=== PATIENT | female | born 1955 | race Caucasian/White ===

== ENCOUNTER 2017-03-26 02:25 | Inpatient (IN) | payer OTHER ==
[~2017-03-26] VITALS: Ht 172.7 cm; Wt 104.8 kg
[~2017-03-26 02:25] MED LIST: ACET-2869 PO; ALBU0.0912 IH; CARI350T34; GABA300C PO; METO25TA PO; OMEP-124 PO; ORE25 PO; TOLT2TAB7 PO; VAS2.5 PO; [UNRECOGNIZED DRUG - CODE]
--- NOTE | 2017-03-26 02:25 | NUR ---
PT SAEID ORTA. TAKEN TO BED 12
[2017-03-26 02:30] VITALS: BP 90/62
--- NOTE | 2017-03-26 02:30 | NUR ---
61 Y/O F BIBA W/C/O LACERATION TO R ELBOW S/P FALLING X 30 MINUTES AGO. PT DENIES ANY LOC. PT ALERT AND ORIENTED X 4, MED HX HTN, PREDIABETICS. VSS, BP SLIGHLTY LOW, ER MADE AWARE.
[2017-03-26 03:28] LABS: HEMATOCRIT 37.8 % (36-48); HEMOGLOBIN 12.4 g/dL (12.0-16.0); MEAN CORPUSCULAR HEMOGLOBIN 29 pg (27-31); MEAN CORPUSCULAR HGB CONC 33 g/dL (33-37); MEAN CORPUSCULAR VOLUME 89 fL (80-94); PLATELET COUNT (AUTO) 225 K/uL (140-450); RED BLOOD CELL COUNT(AUTO) 4.26 MIL/uL (4.20-5.40); RED CELL DISTRIBUTION WIDTH 12.4 % (11.6-13.7); WHITE BLOOD COUNT (AUTO) 6.8 K/uL (4.8-10.8)
[2017-03-26] MEDS ORDERED: NACL 0.9% 1,000 ML IV ONE ×3 (03:30→04:10)
[2017-03-26 03:46] LABS: EOSINOPHILS % (MANUAL) 3 % (0-4); LYMPHOCYTES % (MANUAL) 48 % (20-46); MONOCYTES % (MANUAL) 4 % (5-12)
[2017-03-26 03:47] LABS: ALBUMIN 3.3 g/dL (3.4-5.0); CARBON DIOXIDE 25.6 mmol/L (21-32); CREATININE 1.4 mg/dL (0.6-1.3); POTASSIUM 3.6 mmol/L (3.5-5.1); TOTAL BILIRUBIN 0.4 mg/dL (0.0-1.0)
[2017-03-26 03:50] LABS: PROTHROMBIN TIME 10.4 secs (10.8-13.4)
--- NOTE | 2017-03-26 04:00 | NUR ---
Dr. Boogie evaluating patient at bedside.
[2017-03-26] MEDS ORDERED: MORPHINE SULFATE 4 MG/ML SYR IVP ONE (04:35)
--- NOTE | 2017-03-26 04:45 | NUR ---
PT TAKEN FOR CT SCAN VIA [facility].
[2017-03-26 05:07] LABS: APPEARANCE,URINE CLEAR (CLEAR); BILIRUBIN,URINE NEGATIVE (NEGATIVE); BLOOD, URINE NEGATIVE (NEGATIVE); COLOR,URINE YELLOW (YELLOW); LEUKOCYTE ESTERASE ,URINE NEGATIVE (NEGATIVE); NITRITE, URINE NEGATIVE (NEGATIVE); PH,URINE 5.5 (5.0-9.0); UGLUCOSE NEGATIVE (NEGATIVE)
--- NOTE | 2017-03-26 05:12 | NUR ---
PT RESTING IN BED, AWATING FOR LAB RESULTS.
[2017-03-26] MEDS ORDERED: HYDROmorphone 1 MG/ML AMP IVP ONE (05:20)
[2017-03-26] MEDS ORDERED: LIDOCAINE 1% ***ER ONLY *** 10 MG/ML VIAL INJ ONE (05:20)
--- NOTE | 2017-03-26 05:20 | NUR ---
Cristy melgar in EDM - 03/26/17 at 0559 by NORM PT PERFORMING TX TO R LAC. PT TOLERATING WELL.
--- NOTE | 2017-03-26 05:20 | NUR ---
LEROY DANIELS PERFORMING TX TO PT'S R LAC. PT TOLERATING WELL.
[2017-03-26] MEDS ORDERED: cefTRIAXone 1,000 MG VIAL ONE (05:29)
[2017-03-26] MEDS ORDERED: ALBUTEROL 0.083% 2.5 MG/3 ML NEBU INH PRN (06:15)
[2017-03-26] MEDS ORDERED: ONDANSETRON 4 MG/2 ML VIAL IVP PRN (06:15)
[2017-03-26] MEDS ORDERED: ACETAMINOPHEN 325 MG TAB PO PRN (06:15)
--- NOTE | 2017-03-26 06:36 | NUR ---
Patient will be admitted to care of DR TRAN. Admited to MED SURG. Will go to room 105 A. Belongings list completed. Report to SHERIF CORTEZ.
--- NOTE | 2017-03-26 06:45 | NUR ---
PT TRANSFERED TO FLOOR VIA WHEELCHAIR BY EMT.
[2017-03-26 07:00] VITALS: BP 114/73
--- NOTE | 2017-03-26 07:10 | NUR ---
RECEIVED PATIENT IN BED. PATIENT AWAKE, ALERT AND ORIENTED. NO S/S OF DISTRESS NOTED. PATIENT ON 2L O2. NO SOB. DRESSING NOTED TO THE RIGHT ELBOW. DRESSING CLEAN, DRY AND INTACT. IV LINE NOTED TO THE LEFT AC SALINE LOCKED. NO C/O PAIN AT THIS TIME. FALL PRECAUTIONS IN PLACE. BED LOWERED WITH CALL LIGHT WITHIN REACH. WILL CONTINUE TO MONITOR
[2017-03-26] MEDS ORDERED: LIDOCAINE/PRILOCAINE 2.5% 30 GM TUBE TP ONE (07:11)
--- NOTE | 2017-03-26 08:59 | NUR ---
PATIENT HAS BEEN SCREENED AND CATEGORIZED MODERATE NUTRITION RISK. PATIENT WILL BE SEEN WITHIN 3-5 DAYS OF ADMISSION. 03/29/17 - 03/31/17 COLE [address] [place] MBA, RD
[2017-03-26] MEDS: MORPHINE SULFATE 4 MG/ML SYR IVP PRN ×3 (11:02→21:32)
--- NOTE | 2017-03-26 11:40 | NUR ---
PATIENT SEEN BY PHYSICAL THERAPIST
[2017-03-26 12:00] VITALS: BP 128/69
[2017-03-26] MEDS: NACL 0.9% 1,000 ML IV SCH ×2 (12:15→16:11)
[2017-03-26] MEDS ORDERED: ALBUTEROL HFA MDI 90 MCG/ACTUATION 8 GM INH PRN (12:40)
--- NOTE | 2017-03-26 12:40 | NUR ---
WOUND NOTED TO THE PATIENT'S RIGHT SECOND TOE. DR RUEDA AWARE
--- NOTE | 2017-03-26 12:45 | NUR ---
ASSISTED PATIENT TO THE BATHROOM USING A WALKER. PATIENT VOIDED. NO S/S OF DISTRESS NOTED
--- NOTE | 2017-03-26 13:00 | NUR ---
PATIENT SEEN BY DR RUEDA
[2017-03-26] MEDS: metroNIDAZOLE 500 MG/NS PREMIX 100 ML IV SCH ×2 (14:10→21:27)
[2017-03-26] MEDS ORDERED: INFLUENZA VIRUS VACCINE QUAD 0.5 ML SYR IMVAC PRN (15:05)
[2017-03-26] MEDS ORDERED: PNEUMOCOCCAL VACCINE 23 MCG/0.5 ML VIAL IMVAC SCH (15:05)
--- NOTE | 2017-03-26 15:22 | NUR ---
Social Service Note: Per patient and patient's daughter Irina , they do not want patient to be transfer to snf for physical therapy, they prefer home health services. I verified patient's address listed on face sheet with Irina. Ambulatory Care Coordinator Shandra made aware of above information.
[2017-03-26 16:00] VITALS: BP 152/82
--- NOTE | 2017-03-26 18:06 | NUR ---
Social Service Note: I faxed inquiry to [facility], phone number , fax . Per Sade from [facility], patient has been accepted, she will contact assistant case manager Sugar from [facility] for authorization. She stated they will send a nurse to patient's home on Wednesday03/28/17, charge nurse Misael made aware.
[2017-03-26] MEDS: MORPHINE SULFATE 2 MG/ML SYR IVP PRN (18:16)
--- NOTE | 2017-03-26 19:28 | NUR ---
PATIENT REPORT GIVEN AT BEDSIDE. PATIENT ENDORSED IN STABLE CONDITION
--- NOTE | 2017-03-26 19:29 | NUR ---
PATIENT IS CURRENTLY AWAKE ALERT ORIENTED RESTING IN BED,IVF INFUSING WELL IV SITE PATENT NO INFILTRATION NOTED TO IV SITE. PATIENT HAS NO COMPLAINS OF PAIN AT THIS TIME. DRESSING CURRENTLY IN PLACE TO RT FOREARM REMAINS DRY AND INTACT SHE HAS SOME PURPLISH DISCOLORATION NOTED UNDER THE CHIN.PATIENT HAS A BEDSIDE COMMODE AT BEDSIDE PATIENT ENCOURAGED TO CALL FOR ASSISTANCE PATIENT VERBALIZES UNDERSTANDING.CALL LIGHT WITHIN REACH WILL CONTINUE TO MONITOR.
--- NOTE | 2017-03-26 20:00 | NUR ---
Patient's Plan of Care was discussed and reviewed with AMUSEMENT PARK ENTERTAINER: SINDI GOMES
--- NOTE | 2017-03-26 20:30 | NUR ---
PATIENT ASSISTED TO THE BEDSIDE COMMODE BY KRISSY PEREIRA AND KRISSY BRANCH.CALL LIGHT WITHIN REACH AND FALL PRECAUTIONS IMPLEMENTED AT ALL TIMES.
--- NOTE | 2017-03-26 21:20 | NUR ---
MD TRAN CALLED BACK AND I INFORMED HIM THAT PATIENT BLOOD PRESSURE WAS HIGH EARLIER 161/96 AND I RECHECKED IT AGAIN AND IT IS STILL 158/85 HR 85 I INFORMED MD THAT PATIENT DOESN'T HAVE ANY B/P MEDS CURRENTLY ORDERED ,BUT SHE IS TAKING B/P HOME MEDS. I READ THE LIST OF HOME MEDS TO MD TRAN AND ALSO B/P MEDS SHE IS TAKING AT HOME AND I ALSO TOLD MD THAT PATIENT HAD TOLD ME THAT THE MAGISTERIAL DISTRICT JUDGE SPOKE TO HER AND TOLD HER THAT HE WAS THINKING OF NOT CONTINUING HER BLOOD PRESSURE MEDS BECAUSE OF THE DIURETIC IN ONE OF HER B/P MEDS HE WAS CONCERNED SHE MIGHT BE LOSING TOO MUCH WATER.SO I READ TO MD TRAN THE PATIENT'S CURRENT BUN AND CREATININE AND THEN HE GAVE NEW ORDERS AND SAID TO GIVE LOPRESSOR 25MG PO TIMES ONE ONCE TONIGHT AND THEN DAILY AND ALSO NORVASC 5MG PO TIMES ONE ONCE TONIGHT AND THEN DAILY. WILL CARRY MD ORDERS OUT AND I WILL CONTINUE TO OBSERVE THE PATIENT.
[2017-03-26] MEDS ORDERED: amLODIPine 5 MG TAB PO SCH (21:25)
[2017-03-26] MEDS ORDERED: METOPROLOL 25 MG TAB PO SCH (21:25)
[2017-03-26 21:35] VITALS: BP 158/85
--- NOTE | 2017-03-26 21:48 | NUR ---
BLOOD PRESSURE MEDS ADMINISTERED ORDERED FOR HIGH BLOOD PRESSURE BY MD TRAN WILL CONTINUE TO MONITOR.CALL LIGHT WITHIN REACH.
--- NOTE | 2017-03-26 22:33 | NUR ---
PATIENT RESTING COMFORTABLY IN BED NEEDS MET.PATIENT STATES,"I FEEL VERY COMFORTABLE."
[2017-03-27 00:15] VITALS: BP 157/91
--- NOTE | 2017-03-27 00:20 | NUR ---
PATIENT IS CURRENTLY AWAKE SITTING UP IN BED TRYING TO MAKE HERSELF COMFORTABLE IN BED,IVF INFUSING WELL IV SITE PATENT WILL CONTINUE TO MONITOR.CALL LIGHT WITHIN REACH.
[2017-03-27] MEDS: NACL 0.9% 1,000 ML IV SCH ×2 (02:11→03:39)
--- NOTE | 2017-03-27 03:00 | NUR ---
PATIENT SLEEPING COMFORTABLY IN BED WILL CONTINUE TO MONITOR.CALL LIGHT WITHIN REACH.
[2017-03-27] MEDS: MORPHINE SULFATE 2 MG/ML SYR IVP PRN (03:08)
--- NOTE | 2017-03-27 04:59 | NUR ---
PATIENT ASSISTED TO THE BEDSIDE COMMODE AND BACK TO BED PATIENT TOLERATED ACTIVITY WELL. SCD'S CONTINUE TO BE IN ON AND IN PLACE TO BOTH LOWER EXTREMITIES.CALL LIGHT WITHIN REACH WILL CONTINUE TO MONITOR.
[2017-03-27] MEDS: metroNIDAZOLE 500 MG/NS PREMIX 100 ML IV SCH ×3 (05:01→21:17)
--- NOTE | 2017-03-27 07:23 | NUR ---
[facility] REFERRAL RECEIVED ON 03/27/17. PATIENT HAS BEEN RE-SCREENED AND CATEGORIZED HIGH NUTRITION RISK. PATIENT WILL BE SEEN WITHIN 1-2 DAYS OF ADMISSION. 03/27/17 - 03/28/17 COLE [address] [facility]O MBA, RD
--- NOTE | 2017-03-27 07:41 | NUR ---
PATIENT STABLE REPORT ENDORSED TO SHERIF HAYNES PATIENT IS STABLE SHE WILL RESUME CARE OF THE PATIENT.
--- NOTE | 2017-03-27 07:45 | NUR ---
REPORT RECEIVED FROM [facility] NURSE, PT IN BED AWAKE ALERT AND ORIENTED X4. PT IS ABLE TO FOLLOW COMMAND AND MAKE NEEDS KNOWN WELL VERBALLY. PT DENIES ANY PAIN AT THIS TIME. DRESSING TO THE RIGHT ARM INTACT. CALL LIGHT WITHIN REACH. PT IS AWARE TO CALL FOR HELP AT ALL TIMES. V/S STABLE.
[2017-03-27 08:13] LABS: BASOPHILS # (AUTO) 0.2 K/uL (0.00-0.22); BASOPHILS % (AUTO) 3.5 % (0.0-2.0); EOSINOPHILS # (AUTO) 0.1 K/uL (0-0.4); EOSINOPHILS % (AUTO) 1.7 % (0.0-4.0); HEMATOCRIT 37.5 % (36-48); HEMOGLOBIN 12.7 g/dL (12.0-16.0); LYMPHOCYTES # (AUTO) 1.7 K/uL (2.5-16.5); LYMPHOCYTES % (AUTO) 24.6 % (20.5-51.1); MEAN CORPUSCULAR HEMOGLOBIN 30 pg (27-31); MEAN CORPUSCULAR HGB CONC 34 g/dL (33-37); MEAN CORPUSCULAR VOLUME 88 fL (80-94); MONOCYTES # (AUTO) 0.7 K/uL (0.8-1.0); MONOCYTES % (AUTO) 10.2 % (1.7-9.3); NEUTROPHILS # (AUTO) 4.1 K/uL (1.8-7.7); PLATELET COUNT (AUTO) 145 K/uL (140-450); RED BLOOD CELL COUNT(AUTO) 4.24 MIL/uL (4.20-5.40); RED CELL DISTRIBUTION WIDTH 12.1 % (11.6-13.7); WHITE BLOOD COUNT (AUTO) 6.8 K/uL (4.8-10.8)
[2017-03-27 08:14] VITALS: BP 156/90
[2017-03-27 08:55] LABS: ALBUMIN 3.5 g/dL (3.4-5.0); ANION GAP 14.3 (8-16); CARBON DIOXIDE 23.6 mmol/L (21-32); CREATININE 0.9 mg/dL (0.6-1.3); MAGNESIUM 1.6 mg/dL (1.8-2.4); PHOSPHORUS 3.2 mg/dL (2.5-4.9); POTASSIUM 3.9 mmol/L (3.5-5.1); TOTAL BILIRUBIN 0.4 mg/dL (0.0-1.0)
[2017-03-27] MEDS: METOPROLOL 25 MG TAB PO SCH (09:48)
[2017-03-27] MEDS: MORPHINE SULFATE 4 MG/ML SYR IVP PRN ×2 (09:49→16:07)
[2017-03-27] MEDS: OXYBUTYNIN 5 MG TAB PO SCH (09:49)
[2017-03-27] MEDS: amLODIPine 5 MG TAB PO SCH (09:54)
[2017-03-27] MEDS ORDERED: MAG SULF 2000 MG/WATER PREMIX 50 ML IV SCH (14:30)
--- NOTE | 2017-03-27 16:54 | NUR ---
PT IS CURRENTLY LYING IN BED CALMLY. PT WAS MOVED FROM ROOM 105A TO 124B VIA THIS AM. PT HAS BEEN MEDICATED TWICE WITH MORPHINE SULFATE 4MG 1ST IN THE MORNING AND AGAIN AT 1607 FOR RIGHT ARM PAIN 01/10. NO C/O ABD PAIN, N/V. PT'S DAUGHTER CAME BY, SHE WANTS HER MOTHER TO GO WITH HER INSTEAD OF SNF. SHE ANGELA IS AWARE OF IT. SHE WILL ORDER HOME EQUIPMENT FOR PT.
--- NOTE | 2017-03-27 17:33 | NUR ---
SPOKE TO DR. MCKAY COVERING FOR , HE SAID PATIENT WILL BE UNDER DR. RADHA SOSA.
--- NOTE | 2017-03-27 19:30 | NUR ---
PT IS MOVED FROM ROOM 124B TO 107B AT 1615 BECAUSE CALL LIGHT IS NON FUNCTIONAL IN ROOM 124B. PT IS CURRENTLY IN BED RESTING WELL. NO ACUTE DISTRESS NOTED. 2GM MAGNESIUM RIDER ORDERED AND INFUSING.
--- NOTE | 2017-03-27 19:35 | NUR ---
PATIENT RECEIVED AWAKE ALERT ORIENTED RESTING IN BED AT THIS TIME, PATIENT DENIES PAIN PATIENT STATES,"I FEEL BETTER TODAY." FALL PRECAUTIONS CONTINUE TO BE IMPLEMENTED.PATIENT NEEDS MET.CALL LIGHT WITHIN REACH WILL CONTINUE TO MONITOR.
[2017-03-27 20:00] VITALS: BP 154/90
--- NOTE | 2017-03-27 20:00 | NUR ---
Patient's Plan of Care was discussed and reviewed with CARLA: ELISEO
--- NOTE | 2017-03-27 20:30 | NUR ---
PATIENT HAS A DISCHARGE ORDER BUT SAYS ONLY IF ITS OK WITH MD MCKAY SO I PAGED MD MCKAY.
--- NOTE | 2017-03-27 20:32 | NUR ---
I PAGED MD MCKAY EARLIER AND HE CALLED ME BACK AND I ASKED HIM IF ITS OK WITH HIM FOR PATIENT TO BE DISCHARGED ALYSSIA DANIELS SAID YES AND SAID TO HAVE PATIENT FOLLOW UP WITH PCP IN ONE WEEK. I ASKED HIM IF HE WANTS PATIENT TO CONTINUE WITH HIS HOME MEDICATIONS MD MCKAY SAID YES HE WAS INFORMED OF PATIENT'S HOME MED LIST AND READ BACK DONE TO MD AND HE SAID ITS OK TO CONTINUE.
--- NOTE | 2017-03-27 21:29 | NUR ---
I CALLED AND SPOKE TO SANDRITA MCDONALD AND INFORMED HER THAT PATIENT HAS A DISCHARGE ORDER FOR TONIGHT AND I SPOKE WITH MD MCKAY COMMERCIAL LOAN OFFICER AND ALSO SAID IT WAS OK FOR PATIENT GO HOME TONITE AND SHE CAN FOLLOW UP WITH HER PCP IN ONE WEEK BUT SHE WON'T GO HOME TONIGHT EVEN THOUGH THERE IS AN ORDER BECAUSE WERE WAITING FOR TO ARRANGE FOR HOME HEALTH FOR THE PATIENT. I TRIED TO EXPLAIN TO SANDRITA MCDONALD BUT SHE WON'T LISTEN SHE KEEPS TELLING ME SHE IS UPSET WITH THE CARE PROVIDED TO HER MOTHER AND I TOLD HER IF SHE HAS ANY CONCERNS OR QUESTIONS SHE CAN TALK TO THE CHARGE NURSE TAMARA SAID SHE WILL DO IT WHEN HER MOTHER GETS DISCHARGE.I ENCOURAGED HER TO TALK TO THE CHARGE NURSE AND HAND BRAILLE TRANSCRIBER WHEN SHE HAS ANY PROBLEM OR CONCERN SHE TOLD ME THAT SHE HASN'T TOLD ANYONE BUT SHE INSISTS AND IS THREATENING TO FILE A COMPLAINT WHEN HER MOTHER GETS DISCHARGED.
--- NOTE | 2017-03-27 22:54 | NUR ---
PATIENT RESTING COMFORTABLY IN BED AT THIS TIME NEEDS MET BED ALARM ON FOR SAFETY AND FALL PRECAUTIONS.CALL LIGHT WITHIN REACH.
--- NOTE | 2017-03-27 23:22 | NUR ---
MD MCKAY HAS BEEN INFORMED THAT PATIENT NEEDS CM/SS TO ARRANGE FOR HOME HEALTH FOR THE PATIENT. MD MCKAY SAID ITS OK TO HOLD DISCHARGE FOR TONIGHT.GAVE TELEPHONE ORDER TO HOLD DISCHARGE FOR TONIGHT.
--- NOTE | 2017-03-27 23:28 | NUR ---
DRESSING TO RT FOREARM WAS REMOVED WOUND SITE WAS CLEANED WITH NORMAL SALINE AND PAT DRY WITH GAUZE THEN PICTURES WERE TAKEN OF THE RT FOREARM AND AFTERWARDS COVERED WITH A DRESSING AND WAS SECURED WITH ROLLER GAUZE AND PAPER TAPE.PICTURES ALSO TAKEN OF PATIENT'S CHIN, AND ALSO RT LOWER TOE WITH PATIENT'S CONSENT.
--- NOTE | 2017-03-28 00:02 | NUR ---
I OFFERED PNA VACCINE TO THE PATIENT AND PATIENT STATES SHE HAS RECEIVED PNA VACCINE 3YRS AGO IN [facility]. PATIENT WAS OFFERED THE FLU VACCINE AND PATIENT STATES,"YES I WANT THE FLU VACCINE." FLU VACCINE ADMINISTERED WILL MONITOR FOR ANY ADR.
--- NOTE | 2017-03-28 00:15 | NUR ---
I ASSISTED THE PATIENT TO THE BEDSIDE COMMODE AND BACK TO BED AND THEN KRISSY PEREIRA AND KRISSY BRANCH GAVE GOOD PERICARE TO THE PATIENT AND CHANGED HER UNDERNEATH LINEN AND BLUE REDD AND COVERED THE PATIENT WELL WITH BLANKETS.CALL LIGHT WITHIN REACH AND BED ALARM ON AT ALL TIMES.
[2017-03-28 00:21] VITALS: BP 153/82
--- NOTE | 2017-03-28 00:32 | NUR ---
PATIENT REFUSED TO HAVE THE SCD'S ON PATIENT STATES,"I WON'T BE ABLE TO SLEEP TONIGHT WITH THESE STOCKINGS ON."PATIENT REFUSED AND SO I REMOVED THEM.EDUCATION GIVEN ON THE IMPORTANCE OF WEARING THEM FOR DVT PREVENTION AND FOR CIRCULATION BUT PATIENT REFUSED.BED ALARM ON.CALL LIGHT WITHIN REACH.
--- NOTE | 2017-03-28 03:05 | NUR ---
PATIENT IS CURRENTLY SLEEPING NO PAIN OR DISCOMFORT NOTED WILL CONTINUE TO MONITOR.CALL LIGHT WITHIN REACH.
--- NOTE | 2017-03-28 04:00 | NUR ---
ROUNDS MADE CONTINUOUSLY PATIENT NEEDS MET PATIENT DENIES ANY PAIN. ASSISTED TO BEDSIDE COMMODE NEEDED.GOWN CHANGED BY AUTO BODY MECHANIC APPRENTICE JL AND AUTO BODY MECHANIC APPRENTICE LIBERTY WHEN IT NEEDS TO BE CHANGED.BED ALARM ON.
[2017-03-28] MEDS: metroNIDAZOLE 500 MG/NS PREMIX 100 ML IV SCH (04:57)
--- NOTE | 2017-03-28 05:00 | NUR ---
PATIENT CONTINUES TO SLEEP,IVF INFUSING WELL IV SITE PATENT WILL CONTINUE TO MONITOR.CALL LIGHT WITHIN REACH.
--- NOTE | 2017-03-28 06:55 | NUR ---
PATIENTS IV LINE CAME OUT ACCIDENTALLY.I CLEANED THE AREA AND I RESTARTED ANOTHER IV LINE TO LT HAND G#22 AT FIRST ATTEMPT WITH GOOD RETURN AND CHANGED HER BLANKETS.
--- NOTE | 2017-03-28 07:10 | NUR ---
REPORT ENDORSED TO SHERIF HAYNES SHE WILL RESUME CARE OF THE PATIENT.
--- NOTE | 2017-03-28 07:30 | NUR ---
PT IN BED AWAKE ALERT AND ORIENTED X4. PT IS ABLE TO MAKE NEEDS KNOWN WELL AND FOLLOWS DIRECTION. NO REPORTED PAIN OT RESP DISTRESS NOTED. CALL LIGHT WITHIN REACH, BED IN LOW POSITION AND BED ALARM TURNED ON. DRESSING TO THE RIGHT ARM IS CLEAN DRY AND INTACT.
[2017-03-28 08:00] VITALS: BP 162/91
--- NOTE | 2017-03-28 09:00 | NUR ---
SPOKE WITH THE COOKY MACHINE OPERATOROFFICE RECEPTIONIST FROM [facility] , THEY WILL REQUEST THE AUTHORIZATION FROM [facility] IF PATIENT IS ACCEPTED THEY WILL VISIT PATIENT TOMORROW.
[2017-03-28] MEDS: OXYBUTYNIN 5 MG TAB PO SCH (09:28)
[2017-03-28] MEDS: METOPROLOL 25 MG TAB PO SCH (09:29)
[2017-03-28] MEDS: amLODIPine 5 MG TAB PO SCH (09:29)
--- NOTE | 2017-03-28 10:00 | NUR ---
FAXED ALL INFORMATION TO [facility] WAITING FOR ACCEPTANCE
--- NOTE | 2017-03-28 11:00 | NUR ---
JOAQUIN FROM [facility] RECEIVED ALL THE INFORMATION SOON THEY GET THE AUTH TOMORROW THEY WILL VISIT.
--- NOTE | 2017-03-28 11:30 | NUR ---
EXPLAIN TO PATIENT AND PT'S DAUGHTER THAT [facility] WILL CONTACT PATIENT AFTER THEY RECEIVED AUTH FORM IEHP . VERBALIZED UNDERSTANDING. DRESSING CHANGE TO RIGHT 2ND BIG TOE NAILS OFF BY ITSELF CLEAN WITH NS PAT DRY AND COVERED WITH 4X4 AND KERLEX. EXPLAINED PATIENT AND HER DAUGHTER THE IMPORTANCE OF FOLLOW UP WITH PCP AND PODIATRY , THEY STATED THEY HAVE APPOINTMENT TOMORROW AT 11OOAM , EXTRA DRESSING CHANGE SUPPLY GIVEN TEACHING HAS BEEN DONE VERBALIZED UNDERSTANDING.
--- NOTE | 2017-03-28 12:12 | NUR ---
PT IS RESTING WELL IN BED. PT ASSISTED UP TO THE BATHROOM TWICE AND HAD A BM BOTH TIMES. NO ACUTE DISTRESS NOTED.
--- NOTE | 2017-03-28 12:56 | NUR ---
03/27/17 RD INITIAL ASSESSMENT COMPLETED PLEASE REFER TO NUTRITION ASSESSMENT UNDER CARE ACTIVITY FOR ESTIMATED NUTRITIONAL NEEDS. RD RECOMMENDATIONS: 1. CONTINUE 2GM SODIUM DIET. 2. IF BLOOD GLUCOSE LEVELS BECOME ELEVATED, CONSIDER ADDING CCHO 60 GM DIET RESTRICTION TO CURRENT DIET ORDER. 3. CONSULT RDN PRN. 4. RD WILL F/U 5-7 DAYS; LOW RISK. KIRILL CASILLAS, MS, RDN
--- NOTE | 2017-03-28 15:05 | NUR ---
DISCHARGE EDUCATION ON MED, F/U WITH PCP, CARE OF WOUND, S/S OF INFECTION, HOME CARE FOLLOW UP PROVIDED TO PT AND HER DAUGHTER, VERBAL UNDERSTANDING RECEIVED BACK. PT DC VIA W/C
--- NOTE | 2017-03-29 11:44 | NUR ---
RECEIVED VM FROM ULISSES AT [facility] STATING NEEDS AUTH FROM [facility] FOR HH SERVICES. 1010 SPOKE WITH JUAN ANTONIO MOLINA AT [facility] AND PROVIDED HER WITH CLINICAL INFORMATION AND FAXED ORDER FOR HOME PT AND BEDSIDE COMMODE. PER JUAN ANTONIO AUTH FOR HH IS [id number] AND FOR [facility] FOR COMMODE IS [id number]. CALLED [facility] AND GAVE ULISSES AUTH NUMBER FOR HH SERVICE.
--- NOTE | 2017-03-29 13:25 | NUR ---
ORDER FOR COMMODE FAXED TO [facility] [phone]. SPOKE WITH LILY FROM [place] [employer] [phone] AND HE IS AWARE OF THE ORDER.
== END 2017-03-28 13:15 | disposition home health service (06) | DRG 469 ==
LOC: MED 02:25 → MTU 06:17 → UNDOADMIN 06:17 → OBSVTOIN 16:27 → MTU 03-27 11:25
PROVIDERS: ADMIT Hospitalist; ATTEND Hospitalist
PROC: 0HQDXZZ Repair Right Lower Arm Skin, External Approach (ICD-10-PCS; principal; 2017-03-26)
PROC: 3E0234Z Introduction of Serum, Toxoid and Vaccine into Muscle, Percutaneous Approach (ICD-10-PCS; 2017-03-28)
DX: N17.9 Acute kidney failure, unspecified (principal); E87.2 Acidosis; A08.4 Viral intestinal infection, unspecified; I10 Essential (primary) hypertension; J44.9 Chronic obstructive pulmonary disease, unspecified; E86.0 Dehydration; E86.1 Hypovolemia; S51.011A Laceration without foreign body of right elbow, initial encounter; I25.10 Atherosclerotic heart disease of native coronary artery without angina pectoris; G89.29 Other chronic pain; M54.9 Dorsalgia, unspecified; E11.9 Type 2 diabetes mellitus without complications; E66.9 Obesity, unspecified; Z88.5 Allergy status to narcotic agent; Z88.8 Allergy status to other drugs, medicaments and biological substances; Z91.041 Radiographic dye allergy status; Z90.710 Acquired absence of both cervix and uterus; Z23 Encounter for immunization; Z87.891 Personal history of nicotine dependence; Z84.1 Family history of disorders of kidney and ureter; W18.39XA Other fall on same level, initial encounter; Y92.89 Other specified places as the place of occurrence of the external cause; Y93.89 Activity, other specified; Y99.8 Other external cause status
CPT/HCPCS: 12002; 96361; 96365; 96375; 99285; G0378; 36415; 70486; 71010; 72125; 73080; 73630; 76770; 80053; 81003; 83605; 83735; 83880; 84100; 84484; 85025; 85610; 85730; 87040; 87081; 87086; 90658; 93005; 97110; 97116; 97530; G0482; J0696; J1170; J2001; J2270; J3475; J3490; J7030; J7060; Q0092

== ENCOUNTER 2018-07-19 12:13 | Emergency (ER) | payer OTHER ==
[~2018-07-19] VITALS: Ht 175.3 cm; Wt 104.3 kg
[~2018-07-19 12:13] MED LIST changes: -ACET-2869 PO; +HYDR-5122 PO; -ORE25 PO; -VAS2.5 PO
[2018-07-19 12:20] VITALS: BP 166/87
--- NOTE | 2018-07-19 12:20 | NUR ---
PT BIB FAMILY FOR DIZZYNESS. PT REPORTS WAKING UP THIS MORNING AND FEELING DIZZY WITH NON RADIATING R SIDED DULL CP AT 3/10. PT REPORTS THAT SHE WAS SOB, BUT STATES THAT SHE IS NOT SOB AT THIS TIME. HEART RRR, CAP REFIL <3 SEC, NO EDEMA PRESENT. RR SYMMETRICAL, NON LABORED WITH BREATH SOUNDS CLEAR THROUGHOUT. VSS. ER MD TO SEE PT. MEDHX: HTN, COPD, ULCER
[2018-07-19] MEDS ORDERED: NACL 0.9% 1,000 ML IV SCH (13:10)
[2018-07-19] MEDS ORDERED: DIPHENOXYLATE /ATROPINE 2.5 MG TAB PO ONE (13:10)
--- NOTE | 2018-07-19 13:38 | NUR ---
LAB AT BEDSIDE, XRAY AT BEDSIDE
[2018-07-19 13:45] LABS: BASOPHILS # (AUTO) 0.1 K/uL (0.00-0.22); EOSINOPHILS % (AUTO) 0.2 % (0.0-4.0); HEMATOCRIT 45.5 % (36-48); HEMOGLOBIN 15.6 g/dL (12.0-16.0); LYMPHOCYTES # (AUTO) 2.6 K/uL (2.5-16.5); LYMPHOCYTES % (AUTO) 30.6 % (20.5-51.1); MEAN CORPUSCULAR HEMOGLOBIN 30 pg (27-31); MEAN CORPUSCULAR HGB CONC 34 g/dL (33-37); MEAN CORPUSCULAR VOLUME 87.2 fL (80-94); MONOCYTES # (AUTO) 0.6 K/uL (0.8-1.0); MONOCYTES % (AUTO) 6.7 % (1.7-9.3); NEUTROPHILS # (AUTO) 5.2 K/uL (1.8-7.7); NEUTROPHILS % (AUTO) 61.5 % (42.2-75.2); PLATELET COUNT (AUTO) 274 K/uL (140-450); RED BLOOD CELL COUNT(AUTO) 5.22 MIL/uL (4.20-5.40); RED CELL DISTRIBUTION WIDTH 13.1 % (11.6-13.7); WHITE BLOOD COUNT (AUTO) 8.5 K/uL (4.8-10.8)
[2018-07-19 14:00] LABS: APPEARANCE,URINE HAZY (CLEAR); BILIRUBIN,URINE 2+ (NEGATIVE); BLOOD, URINE NEGATIVE (NEGATIVE); COLOR,URINE YELLOW (YELLOW); LEUKOCYTE ESTERASE ,URINE 1+ (NEGATIVE); NITRITE, URINE NEGATIVE (NEGATIVE); UGLUCOSE NEGATIVE (NEGATIVE)
[2018-07-19 14:16] LABS: ANION GAP 17.8 (8-16); CARBON DIOXIDE 21.3 mmol/L (21-32); CREATININE 1.2 mg/dL (0.6-1.3); POTASSIUM 3.1 mmol/L (3.5-5.1)
[2018-07-19 14:29] LABS: RBC,URINE 0-5 /HPF (0-5); WBC,URINE 16-25 (MOD) /HPF (0-5)
[2018-07-19 14:30] LABS: ALBUMIN 4.4 g/dL (3.4-5.0); TOTAL BILIRUBIN 0.6 mg/dL (0.0-1.0)
[2018-07-19 14:32] LABS: PROTHROMBIN TIME 10.7 secs (10.8-13.4)
[2018-07-19] MEDS ORDERED: MAGNESIUM OXIDE 400 MG TAB PO ONE (14:35)
[2018-07-19] MEDS ORDERED: POTASSIUM CHLORIDE 20% 40 MEQ/15 ML UDC PO ONE (14:35)
[2018-07-19] MEDS ORDERED: cefTRIAXone 1,000 MG VIAL ONE (14:51)
[2018-07-19 15:35] VITALS: BP 125/70
--- NOTE | 2018-07-19 15:35 | NUR ---
Patient discharged with v/s stable. Written and verbal after care instructions given and explained. Patient alert, oriented and verbalized understanding of instructions. Ambulatory with steady gait. All questions addressed prior to discharge. ID band removed. Patient advised to follow up with PMD. Rx of CEPHALEXIN, LOMOTIL given. Patient educated on indication of medication including possible reaction and side effects. Opportunity to ask questions provided and answered.
== END 2018-07-19 15:35 | disposition home or self-care (01) ==
LOC: MED 12:13
DX: N39.0 Urinary tract infection, site not specified (principal); R19.7 Diarrhea, unspecified; J44.9 Chronic obstructive pulmonary disease, unspecified; I10 Essential (primary) hypertension; Z87.442 Personal history of urinary calculi; Z90.710 Acquired absence of both cervix and uterus; Z88.5 Allergy status to narcotic agent; Z88.8 Allergy status to other drugs, medicaments and biological substances; Z79.899 Other long term (current) drug therapy
CPT/HCPCS: 36415; 71045; 80053; 81001; 83605; 83880; 84484; 85025; 85610; 85730; 87040; 87086; 93005; 96361; 96365; 99284; J0696; J7030; J7060; Q0092

== ENCOUNTER 2018-12-01 22:43 | Emergency (ER) | payer OTHER ==
[~2018-12-01] VITALS: Ht 172.7 cm; Wt 101.2 kg
[2018-12-01 22:48] VITALS: BP 159/99
[2018-12-02] MEDS ORDERED: HYDROcodone/APAP 10/325 MG 1 TAB TAB PO STA (03:31)
[2018-12-02 05:35] VITALS: BP 130/90
== END 2018-12-02 05:35 | disposition home or self-care (01) ==
LOC: MED 22:43
DX: M25.511 Pain in right shoulder (principal); J44.9 Chronic obstructive pulmonary disease, unspecified; I10 Essential (primary) hypertension; Z79.899 Other long term (current) drug therapy; Z88.5 Allergy status to narcotic agent; Z88.8 Allergy status to other drugs, medicaments and biological substances; W18.40XA Slipping, tripping and stumbling without falling, unspecified, initial encounter; Y93.E1 Activity, personal bathing and showering; Y92.89 Other specified places as the place of occurrence of the external cause; Y99.8 Other external cause status
CPT/HCPCS: 73030; 99283; Q0092

== ENCOUNTER 2019-01-08 09:57 | Emergency (ER) | payer OTHER ==
[~2019-01-08] VITALS: Ht 167.6 cm; Wt 103.4 kg
[2019-01-08 10:02] VITALS: BP 182/101
[2019-01-08] MEDS ORDERED: ONDANSETRON 4 MG/2 ML VIAL IVP ONE ×2 (10:20→14:40)
[2019-01-08] MEDS ORDERED: NACL 0.9% 1,000 ML IV ONE (10:20)
[2019-01-08] MEDS ORDERED: MORPHINE SULFATE 4 MG/ML SYR IVP ONE ×2 (10:20→14:40)
[2019-01-08 11:18] LABS: BASOPHILS % (AUTO) 0.7 % (0.0-2.0); EOSINOPHILS % (AUTO) 0.2 % (0.0-4.0); HEMATOCRIT 41.1 % (36-48); HEMOGLOBIN 14.1 g/dL (12.0-16.0); LYMPHOCYTES # (AUTO) 1.6 K/uL (2.5-16.5); LYMPHOCYTES % (AUTO) 22.5 % (20.5-51.1); MEAN CORPUSCULAR HEMOGLOBIN 30 pg (27-31); MEAN CORPUSCULAR HGB CONC 34 g/dL (33-37); MEAN CORPUSCULAR VOLUME 87.9 fL (80-94); MONOCYTES # (AUTO) 0.4 K/uL (0.8-1.0); MONOCYTES % (AUTO) 6.1 % (1.7-9.3); NEUTROPHILS # (AUTO) 4.9 K/uL (1.8-7.7); NEUTROPHILS % (AUTO) 70.5 % (42.2-75.2); PLATELET COUNT (AUTO) 212 K/uL (140-450); RED BLOOD CELL COUNT(AUTO) 4.68 MIL/uL (4.20-5.40); WHITE BLOOD COUNT (AUTO) 6.9 K/uL (4.8-10.8)
[2019-01-08 11:26] LABS: ANION GAP 17.5 (8-16); CARBON DIOXIDE 22.7 mmol/L (21-32); CREATININE 0.9 mg/dL (0.6-1.3); POTASSIUM 3.2 mmol/L (3.5-5.1)
[2019-01-08 11:32] LABS: ALBUMIN 4.3 g/dL (3.4-5.0); TOTAL BILIRUBIN 0.6 mg/dL (0.0-1.0)
[2019-01-08 12:32] LABS: APPEARANCE,URINE CLOUDY (CLEAR); BILIRUBIN,URINE 1+ (NEGATIVE); BLOOD, URINE NEGATIVE (NEGATIVE); COLOR,URINE YELLOW (YELLOW); LEUKOCYTE ESTERASE ,URINE NEGATIVE (NEGATIVE); NITRITE, URINE NEGATIVE (NEGATIVE); UGLUCOSE NEGATIVE (NEGATIVE)
[2019-01-08 12:54] LABS: RBC,URINE 0-5 /HPF (0-5); WBC,URINE 0-5 /HPF (0-5)
[2019-01-08 12:55] LABS: URINE AMORPHOUS URATE 3+ /HPF (None Seen)
[2019-01-08] MEDS ORDERED: POTASSIUM CHLORIDE 10 MEQ TABER PO ONE (14:40)
[2019-01-08] MEDS ORDERED: KETOROLAC 30 MG/ML VIAL IVP ONE (14:40)
[2019-01-08 15:41] VITALS: BP 125/76
== END 2019-01-08 15:42 | disposition home or self-care (01) ==
LOC: MED 09:57
DX: S90.122A Contusion of left lesser toe(s) without damage to nail, initial encounter (principal); E87.6 Hypokalemia; R10.9 Unspecified abdominal pain; R19.7 Diarrhea, unspecified; R11.0 Nausea; J44.9 Chronic obstructive pulmonary disease, unspecified; I10 Essential (primary) hypertension; Z88.5 Allergy status to narcotic agent; Z88.8 Allergy status to other drugs, medicaments and biological substances; Z90.710 Acquired absence of both cervix and uterus; W22.8XXA Striking against or struck by other objects, initial encounter; Y93.89 Activity, other specified; Y92.89 Other specified places as the place of occurrence of the external cause; Y99.8 Other external cause status
CPT/HCPCS: 36415; 73660; 74176; 80053; 81001; 83690; 85025; 96361; 96374; 96375; 96376; 99284; J1885; J2270; J2405; J7030

== ENCOUNTER 2022-09-23 18:54 | Emergency (ER) | payer OTHER ==
[~2022-09-23] VITALS: Ht 170.2 cm; Wt 95.3 kg
[~2022-09-23 18:54] MED LIST changes: +TOLT2TAB19 PO; -TOLT2TAB7 PO
--- NOTE | 2022-09-23 18:58 | NUR ---
SAEID ALS TO ER BED 6
[2022-09-23 19:06] VITALS: BP 121/68
--- NOTE | 2022-09-23 19:18 | NUR ---
REPORT TO SAVITA GORMAN
--- NOTE | 2022-09-23 19:26 | NUR ---
Assumed care of patient, s/p fall. laceration on head, c/o head and neck pain. alert and awake at this time. allergy to codeine, cyclobenzaprine, iodine and lactose, pmhx neuropathy, diabetes, and COPD.
--- NOTE | 2022-09-23 19:27 | NUR ---
Pt taken to CT
--- NOTE | 2022-09-23 19:48 | NUR ---
ER Dr. Zimmer by bedside at this time evaluating patient
[2022-09-23] MEDS ORDERED: LIDOCAINE MPF 1% 5 ML ONE ×2 (21:09→21:11)
[2022-09-23] MEDS ORDERED: LIDOCAINE 1% 500 MG/ 50 ML VIAL INJ ONE (21:10)
--- NOTE | 2022-09-23 21:42 | NUR ---
SOON ASPATIENT IS AVAILABLE FOR DISCHARGE CALL TAMARA JOHNSON
[2022-09-23] MEDS ORDERED: ACET-10509 PO (23:22)
[2022-09-23 23:55] VITALS: BP 135/70
--- NOTE | 2022-09-23 23:56 | NUR ---
Patient discharged with v/s stable. Written and verbal after care instructions given and explained. New rx tylenol. Patient verbalized understanding. Ambulatory with steady gait. Patient picked up by uber. All questions addressed prior to discharge. Advised to follow up with PMD.
== END 2022-09-23 23:56 | disposition home or self-care (01) ==
LOC: MED 18:54
DX: S01.81XA Laceration without foreign body of other part of head, initial encounter (principal); J44.9 Chronic obstructive pulmonary disease, unspecified; E11.9 Type 2 diabetes mellitus without complications; I10 Essential (primary) hypertension; Z98.890 Other specified postprocedural states; Z79.899 Other long term (current) drug therapy; Z79.2 Long term (current) use of antibiotics; Z79.891 Long term (current) use of opiate analgesic; Z88.5 Allergy status to narcotic agent; Z88.8 Allergy status to other drugs, medicaments and biological substances; Z91.011 Allergy to milk products; W01.198A Fall on same level from slipping, tripping and stumbling with subsequent striking against other object, initial encounter; Y92.89 Other specified places as the place of occurrence of the external cause; Y93.89 Activity, other specified; Y99.8 Other external cause status
CPT/HCPCS: 12014; 70450; 72125; 90471; 90715; 99285; J2001

== ENCOUNTER 2023-04-25 10:05 | Observation (INO) | payer OTHER ==
[~2023-04-25] VITALS: Ht 172.7 cm; Wt 95.7 kg
[~2023-04-25 10:05] MED LIST changes: +ACET-10509 PO
[2023-04-25 10:06] VITALS: BP 128/71; PULSE 99; RESP 15; TEMP 97.1; O2SAT 98
[2023-04-25] MEDS ORDERED: POTASSIUM CHLORIDE 10 MEQ TABER PO PRN (12:20)
[2023-04-25] MEDS ORDERED: ONDANSETRON 4 MG/2 ML VIAL IVP PRN (12:20)
[2023-04-25] MEDS ORDERED: LORazepam 1 MG TAB PO PRN (12:20)
[2023-04-25] MEDS ORDERED: MAGNESIUM OXIDE 400 MG TAB PO PRN (12:20)
[2023-04-25] MEDS ORDERED: ACETAMINOPHEN 325 MG TAB PO PRN (12:20)
[2023-04-25] MEDS ORDERED: HYDROcodone/APAP 5/325 MG 1 TAB TAB PO PRN (12:20)
[2023-04-25 12:34] LABS: BASOPHILS # (AUTO) 0.1 K/uL (0.00-0.22); BASOPHILS % (AUTO) 0.6 % (0.0-2.0); EOSINOPHILS % (AUTO) 0.2 % (0.0-4.0); HEMATOCRIT 41.2 % (36-48); LYMPHOCYTES % (AUTO) 19.4 % (20.5-51.1); MEAN CORPUSCULAR HEMOGLOBIN 30 pg (27-31); MEAN CORPUSCULAR HGB CONC 34 g/dL (33-37); MEAN CORPUSCULAR VOLUME 87.7 fL (80-94); MONOCYTES # (AUTO) 0.8 K/uL (0.8-1.0); NEUTROPHILS # (AUTO) 7.5 K/uL (1.8-7.7); NEUTROPHILS % (AUTO) 71.8 % (42.2-75.2); PLATELET COUNT (AUTO) 211 K/uL (140-450); RED CELL DISTRIBUTION WIDTH 12.9 % (11.6-13.7); WHITE BLOOD COUNT (AUTO) 10.4 K/uL (4.8-10.8)
[2023-04-25 12:49] LABS: CALCIUM 9.4 mg/dL (8.5-10.1); CARBON DIOXIDE 28.4 mmol/L (21-32); POTASSIUM 4.4 mmol/L (3.5-5.1)
[2023-04-25] MEDS ORDERED: GABA400C PO (16:58)
[2023-04-25] MEDS ORDERED: METH-1681 PO (16:59)
[2023-04-25] MEDS ORDERED: SERT-514 PO (17:01)
[2023-04-25] MEDS ORDERED: AMLO5TAB PO (17:01)
[2023-04-25] MEDS ORDERED: LOSA-272 PO (17:01)
[2023-04-25] MEDS ORDERED: TIZA2CAP PO (17:02)
[2023-04-25] MEDS ORDERED: ATOR20TA PO (17:02)
[2023-04-25] MEDS ORDERED: CLOB15CR11 TP (17:03)
[2023-04-25] MEDS ORDERED: FAMO-90 PO (17:05)
[2023-04-25] MEDS ORDERED: NYST15CR7 TP (17:05)
[2023-04-25 20:18] VITALS: BP 139/69; PULSE 84; RESP 18; TEMP 98; O2SAT 96
[2023-04-25] MEDS: MORPHINE SULFATE 2 MG/ML SYR IVP PRN (20:53)
[2023-04-25] MEDS ORDERED: tiZANidine 4 MG TAB PO ONE (22:25)
[2023-04-25] MEDS ORDERED: TIZA4TAB11 PO (22:28)
[2023-04-25] MEDS ORDERED: GABAPENTIN 100 MG CAP PO ONE (22:30)
[2023-04-26] MEDS: MORPHINE SULFATE 2 MG/ML SYR IVP PRN ×5 (00:58→20:12)
[2023-04-26 07:18] LABS: BASOPHILS # (AUTO) 0.1 K/uL (0.00-0.22); BASOPHILS % (AUTO) 0.8 % (0.0-2.0); EOSINOPHILS % (AUTO) 0.7 % (0.0-4.0); HEMATOCRIT 37.4 % (36-48); HEMOGLOBIN 12.8 g/dL (12.0-16.0); LYMPHOCYTES # (AUTO) 2.4 K/uL (2.5-16.5); LYMPHOCYTES % (AUTO) 32.5 % (20.5-51.1); MEAN CORPUSCULAR HEMOGLOBIN 30 pg (27-31); MEAN CORPUSCULAR HGB CONC 34 g/dL (33-37); MEAN CORPUSCULAR VOLUME 87.6 fL (80-94); MONOCYTES # (AUTO) 0.7 K/uL (0.8-1.0); MONOCYTES % (AUTO) 10.1 % (1.7-9.3); NEUTROPHILS # (AUTO) 4.1 K/uL (1.8-7.7); NEUTROPHILS % (AUTO) 55.9 % (42.2-75.2); PLATELET COUNT (AUTO) 195 K/uL (140-450); RED BLOOD CELL COUNT(AUTO) 4.27 MIL/uL (4.20-5.40); RED CELL DISTRIBUTION WIDTH 12.8 % (11.6-13.7); WHITE BLOOD COUNT (AUTO) 7.4 K/uL (4.8-10.8)
[2023-04-26 07:23] LABS: ANION GAP 13.4 (8-16); CALCIUM 9.3 mg/dL (8.5-10.1); CARBON DIOXIDE 27.3 mmol/L (21-32); CREATININE 0.8 mg/dL (0.6-1.3); POTASSIUM 3.7 mmol/L (3.5-5.1)
[2023-04-26 08:00] VITALS: BP 113/47; PULSE 71; RESP 18; TEMP 97.7; O2SAT 96
[2023-04-26] MEDS: GABAPENTIN 100 MG CAP PO SCH ×3 (08:21→17:26)
[2023-04-26] MEDS: tiZANidine 4 MG TAB PO SCH ×2 (08:21→23:10)
[2023-04-26 09:24] VITALS: PULSE 71; RESP 18; O2SAT 96
[2023-04-26] MEDS ORDERED: KETOROLAC 30 MG/ML VIAL IVP PRN (11:30)
[2023-04-26 16:00] VITALS: BP 154/73; PULSE 80; RESP 18; TEMP 98.2; O2SAT 98
[2023-04-26 20:00] VITALS: PULSE 77; RESP 18; O2SAT 96
[2023-04-26] MEDS ORDERED: MELO-174 PO (20:35)
[2023-04-27] VITALS: BP 132/70; PULSE 84; RESP 18; TEMP 98.5; O2SAT 97
[2023-04-27] MEDS: MORPHINE SULFATE 2 MG/ML SYR IVP PRN ×2 (02:27→10:30)
[2023-04-27 07:19] LABS: BASOPHILS # (AUTO) 0.1 K/uL (0.00-0.22); BASOPHILS % (AUTO) 0.9 % (0.0-2.0); EOSINOPHILS # (AUTO) 0.1 K/uL (0-0.4); EOSINOPHILS % (AUTO) 0.8 % (0.0-4.0); HEMATOCRIT 37.4 % (36-48); HEMOGLOBIN 12.8 g/dL (12.0-16.0); LYMPHOCYTES # (AUTO) 2.9 K/uL (2.5-16.5); LYMPHOCYTES % (AUTO) 44.4 % (20.5-51.1); MEAN CORPUSCULAR HEMOGLOBIN 30 pg (27-31); MEAN CORPUSCULAR HGB CONC 34 g/dL (33-37); MEAN CORPUSCULAR VOLUME 87.6 fL (80-94); MONOCYTES # (AUTO) 0.6 K/uL (0.8-1.0); MONOCYTES % (AUTO) 9.6 % (1.7-9.3); NEUTROPHILS # (AUTO) 2.9 K/uL (1.8-7.7); NEUTROPHILS % (AUTO) 44.3 % (42.2-75.2); PLATELET COUNT (AUTO) 191 K/uL (140-450); RED BLOOD CELL COUNT(AUTO) 4.27 MIL/uL (4.20-5.40); RED CELL DISTRIBUTION WIDTH 12.7 % (11.6-13.7); WHITE BLOOD COUNT (AUTO) 6.6 K/uL (4.8-10.8)
[2023-04-27 07:49] LABS: ANION GAP 12.8 (8-16); CALCIUM 9.5 mg/dL (8.5-10.1); CARBON DIOXIDE 27.2 mmol/L (21-32)
[2023-04-27 08:00] VITALS: BP 130/74; PULSE 76; RESP 18; TEMP 97.4; O2SAT 96
[2023-04-27] MEDS: tiZANidine 4 MG TAB PO SCH (08:28)
[2023-04-27] MEDS: GABAPENTIN 100 MG CAP PO SCH (08:30)
[2023-04-27] MEDS ORDERED: PANTOPRAZOLE 40 MG INJ VIAL IVP SCH (09:00)
[2023-04-27 09:34] VITALS: PULSE 71; RESP 18; O2SAT 96
[2023-04-27 11:44] VITALS: BP 130/74; PULSE 76; RESP 18; TEMP 97.4
== END 2023-04-27 12:40 | disposition home or self-care (01) ==
LOC: MED 10:05 → MMU 12:18 → MTU 19:40
PROVIDERS: ADMIT Student in an Organized Health Care Education/Training Program; ATTEND Student in an Organized Health Care Education/Training Program
DX: M17.11 Unilateral primary osteoarthritis, right knee (principal); E66.9 Obesity, unspecified; I10 Essential (primary) hypertension; J44.9 Chronic obstructive pulmonary disease, unspecified; E11.9 Type 2 diabetes mellitus without complications; W18.30XA Fall on same level, unspecified, initial encounter; Y93.89 Activity, other specified; Y92.89 Other specified places as the place of occurrence of the external cause; Y99.8 Other external cause status; Z79.899 Other long term (current) drug therapy
CPT/HCPCS: 36415; 73502; 73560; 73562; 80048; 85025; 87081; 96372; 96374; 96375; 96376; 97110; 97116; 97163; 99284; C9113; G0378; J1644; J1885; J2270

== ENCOUNTER 2023-06-15 13:07 | Emergency (ER) | payer OTHER ==
[~2023-06-15] VITALS: Ht 172.7 cm; Wt 97.1 kg
[~2023-06-15 13:07] MED LIST changes: -ACET-10509 PO; +AMLO5TAB PO; +ATOR20TA PO; +CLOB15CR11 TP; +FAMO-90 PO; -GABA300C PO; +GABA400C PO; +LOSA-272 PO; +MELO-174 PO; +METH-1681 PO; +SERT-514 PO; +TIZA4TAB11 PO; -[UNRECOGNIZED DRUG - CODE]
[2023-06-15 13:17] VITALS: BP 147/85; PULSE 85; RESP 18; TEMP 97.5; O2SAT 97
[2023-06-15 13:59] LABS: BASOPHILS # (AUTO) 0.1 K/uL (0.00-0.22); BASOPHILS % (AUTO) 1.2 % (0.0-2.0); EOSINOPHILS % (AUTO) 0.7 % (0.0-4.0); HEMATOCRIT 42.4 % (36-48); HEMOGLOBIN 14.5 g/dL (12.0-16.0); LYMPHOCYTES % (AUTO) 36.4 % (20.5-51.1); MEAN CORPUSCULAR HEMOGLOBIN 30 pg (27-31); MEAN CORPUSCULAR HGB CONC 34 g/dL (33-37); MONOCYTES # (AUTO) 0.4 K/uL (0.8-1.0); NEUTROPHILS % (AUTO) 54.7 % (42.2-75.2); PLATELET COUNT (AUTO) 201 K/uL (140-450); RED BLOOD CELL COUNT(AUTO) 4.81 MIL/uL (4.20-5.40); RED CELL DISTRIBUTION WIDTH 12.7 % (11.6-13.7); WHITE BLOOD COUNT (AUTO) 5.5 K/uL (4.8-10.8)
[2023-06-15 14:19] LABS: INR 0.97 (0.8-1.2); PARTIAL THROMBOPLASTIN TIME 23.9 secs (22-35.6); PROTHROMBIN TIME 10.2 secs (10.8-13.4)
[2023-06-15 14:20] LABS: ANION GAP 12.3 (8-16); CALCIUM 9.4 mg/dL (8.5-10.1); CARBON DIOXIDE 28.9 mmol/L (21-32); CREATININE 0.9 mg/dL (0.6-1.3); POTASSIUM 4.2 mmol/L (3.5-5.1)
[2023-06-15 14:26] LABS: ALBUMIN 3.9 g/dL (3.4-5.0); BILIRUBIN,DIRECT 0.1 mg/dL (0.0-0.3); TOTAL BILIRUBIN 0.4 mg/dL (0.0-1.0); TOTAL PROTEIN, SERUM 8.8 g/dL (6.4-8.2)
[2023-06-15 15:53] VITALS: BP 135/80; PULSE 82; RESP 16; TEMP 98; O2SAT 98
== END 2023-06-15 15:53 | disposition home or self-care (01) ==
LOC: MED 13:07
DX: K92.1 Melena (principal); J44.9 Chronic obstructive pulmonary disease, unspecified; K21.9 Gastro-esophageal reflux disease without esophagitis; I10 Essential (primary) hypertension; Z98.890 Other specified postprocedural states; Z90.710 Acquired absence of both cervix and uterus; Z79.899 Other long term (current) drug therapy; Z88.8 Allergy status to other drugs, medicaments and biological substances
CPT/HCPCS: 36415; 80048; 80076; 85025; 85610; 85730; 86886; 86900; 86901; 99283